=== PATIENT | female | born 2000 | race Caucasian/White ===

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

== ENCOUNTER → 2021-02-07 | Outpatient (CLI) | payer BC ==
[2021-02-07 13:05] LABS: FREE T4 0.78 ng/dl (0.76-1.46); THYROID STIM HORMONE (HS) 0.882 uIU/ml (0.358-4.75)
[2021-02-08 08:07] LABS: FOLLICLE STIMULATING HORMONE 5.8 mIU/mL (.); LUTEINIZING HORMONE 9.2 mIU/mL (.); PROLACTIN 31.9 ng/mL (4.8-23.3)
== END | disposition home or self-care (01) ==
LOC: LAB 11:46
PROVIDERS: ATTEND Family Medicine
DX: O92.70 Unspecified disorders of lactation (principal); R53.83 Other fatigue; F41.1 Generalized anxiety disorder

== ENCOUNTER → 2021-06-10 | Outpatient (CLI) | payer BC | END | disposition home or self-care (01) | LOC: LAB 07:05 | PROVIDERS: ATTEND Nurse Practitioner Women's Health | DX: N64.52 Nipple discharge (principal) ==

== ENCOUNTER → 2021-06-20 | Outpatient (CLI) | payer BC | END | disposition home or self-care (01) | LOC: US 08:54 | PROVIDERS: ATTEND Nurse Practitioner Women's Health | DX: N64.52 Nipple discharge (principal) ==

== ENCOUNTER → 2021-07-11 | Outpatient (CLI) | payer BC ==
[2021-07-11 09:32] LABS: BUN 12 mg/dl (7-24); CHLORIDE 110 mmol/L (98-107); CREATININE 0.79 mg/dL (0.55-1.02); FREE T4 1.03 ng/dl (0.76-1.46); POTASSIUM 4.1 mmol/L (3.5-5.1); SODIUM 140 mmol/L (136-145)
[2021-07-11 09:38] LABS: THYROID STIM HORMONE (HS) 0.888 uIU/ml (0.358-4.75)
== END | disposition home or self-care (01) ==
LOC: LAB 08:24
PROVIDERS: ATTEND General Practice
DX: E22.1 Hyperprolactinemia (principal)

== ENCOUNTER → 2021-09-13 | Outpatient (CLI) | payer BC | LOC: LAB 16:02 | PROVIDERS: ATTEND Nurse Practitioner | DX: N91.2 Amenorrhea, unspecified (principal) ==

== ENCOUNTER → 2023-07-17 | Outpatient (CLI) | payer OTHER, BC | END | disposition home or self-care (01) | LOC: US 08:37 | PROVIDERS: ATTEND Internal Medicine Nephrology | DX: R10.11 Right upper quadrant pain (principal) ==

== ENCOUNTER → 2023-07-19 | Outpatient (CLI) | payer OTHER, BC | END | disposition home or self-care (01) | LOC: US 07:23 | PROVIDERS: ATTEND Internal Medicine Nephrology | DX: E04.1 Nontoxic single thyroid nodule (principal); E04.9 Nontoxic goiter, unspecified; Z80.8 Family history of malignant neoplasm of other organs or systems ==

== ENCOUNTER → 2023-10-30 | Outpatient (CLI) | payer OTHER, BC ==
[2023-10-31 05:07] LABS: HEPATITIS B SURFACE AG Negative (Negative)
== END | disposition home or self-care (01) ==
LOC: LAB 10:24
PROVIDERS: ATTEND Internal Medicine Nephrology
DX: Z20.2 Contact with and (suspected) exposure to infections with a predominantly sexual mode of transmission (principal)

== ENCOUNTER → 2023-12-06 | Outpatient (CLI) | payer OTHER, BC ==
[2023-12-06 11:03] LABS: CHOLESTEROL 145 mg/dL (<200); LDL CHOLESTEROL 88 mg/dL (9-159); TRIGLYCERIDES 77 mg/dl (<150)
== END | disposition home or self-care (01) ==
LOC: LAB 10:01
PROVIDERS: ATTEND Student in an Organized Health Care Education/Training Program
DX: E78.2 Mixed hyperlipidemia (principal)